=== PATIENT | female | born 1940 | race Caucasian/White ===

== ENCOUNTER 2017-09-07 03:22 | Observation (INO) | payer OTHER ==
[~2017-09-07] VITALS: Ht 160 cm; Wt 133.2 kg
[~2017-09-07 03:22] MED LIST: DIAZIDE; HYDACE5 PO; INDO50 PO; NIFE30ER PO; OMEPRAZOLE MAGN20 MG PO; Ramipril10 MG PO; SERT100; SERT50 PO; Spironolactone50 MG PO; [UNRECOGNIZED DRUG - REMARK]; [UNRECOGNIZED DRUG - REMARK]
[2017-09-07] MEDS ORDERED: NIFE30ER PO (03:36)
[2017-09-07] MEDS ORDERED: Ramipril10 MG PO (03:36)
[2017-09-07 04:17] LABS: BASOPHILS ABSOLUTE AUTO 0.06 K/mm3 (0.00-0.23); BASOPHILS PERCENT AUTO 0 % (0-2); EOSINOPHILS ABSOLUTE AUTO 0.17 K/mm3 (0.00-0.68); EOSINOPHILS PERCENT AUTO 1 % (0-6); Hematocrit 32.6 % (33.0-51.0); Hemoglobin 9.8 g/dL (11.5-16.0); IMMATURE GRAN ABSOLUTE AUTO 0.12 K/mm3 (0.00-0.10); IMMATURE GRAN PERCENT AUTO 1 % (0-1); LYMPHOCYTES ABSOLUTE AUTO 4.18 K/mm3 (0.84-5.20); LYMPHOCYTES PERCENT AUTO 24 % (21-46); MONOCYTES ABSOLUTE AUTO 1.27 K/mm3 (0.16-1.47); MONOCYTES PERCENT AUTO 7 % (4-13); Mean Corpuscular HGB 25.9 pg (26.0-34.0); Mean Corpuscular HGB Conc 30.1 g/dL (31.5-36.5); Mean Corpuscular Volume 86 fL (80-100); Mean Platelet Volume 10.4 fL (9.1-12.4); NEUTROPHILS ABSOLUTE AUTO 11.62 K/mm3 (1.96-9.15); NEUTROPHILS PERCENT AUTO 67 % (41-73); Platelet Count 366 K/mm3 (150-400); RDW Coefficient Variation 15.9 % (11.7-14.2); Red Blood Cell Count 3.78 M/mm3 (3.80-5.20); White Blood Cell Count 17.42 K/mm3 (4.00-11.30)
[2017-09-07 04:30] LABS: Albumin/Globulin Ratio 0.7 (0.8-1.8); Bilirubin, Total 0.2 mg/dL (0.1-1.0); Bun/Creatinine Ratio 22.3 (12.0-20.0); Calcium, Blood 8.6 mg/dL (8.5-10.1); Creatinine, Blood 1.93 mg/dL (0.40-1.00); Globulin, Blood 4.3 g/dL (2.2-4.0); Potassium, Blood 5.9 mmol/L (3.5-5.5); Total Protein, Blood 7.3 g/dL (6.4-8.2)
[2017-09-07 05:15] LABS: IMMATURE RETIC FRACTION 28.8 % (2.3-16.0); RETIC HGB EQUIVALENT 29.9 pg (28.20-36.60); RETICULOCYTE COUNT PERCENT 1.98 % (0.50-2.50)
[2017-09-07 05:29] LABS: Percent Saturation 5.1 % (15.0-50.0)
[2017-09-07 06:04] LABS: Source, Urine Clean Catch
[2017-09-07 06:14] LABS: Blood, Urine 1+ (Neg); Glucose Qualitative, Urine Neg (Neg); Ketones, Urine Neg (Neg); Leukocyte Esterase, Urine Neg (Neg); Nitrite, Urine Neg (Neg); Protein, Urine Neg (Neg); Urobilinogen, Urine NORM (Normal)
[2017-09-07 06:22] LABS: Appearance, Urine Clear (Clear); Bilirubin, Urine 1+ (Neg); Color, Urine Yellow (P-Yellow)
[2017-09-07 06:27] LABS: Bacteria Few /hpf; Red Blood Cells, Urine 0-2 /hpf (0-2); Squamous Epithelial Cells Many /hpf (Few); White Blood Cells, Urine 0-2 /hpf (0-5)
[2017-09-08 06:00] LABS: BASOPHILS ABSOLUTE AUTO 0.07 K/mm3 (0.00-0.23); BASOPHILS PERCENT AUTO 0 % (0-2); EOSINOPHILS ABSOLUTE AUTO 0.21 K/mm3 (0.00-0.68); EOSINOPHILS PERCENT AUTO 1 % (0-6); Hematocrit 31.3 % (33.0-51.0); Hemoglobin 9.6 g/dL (11.5-16.0); IMMATURE GRAN ABSOLUTE AUTO 0.25 K/mm3 (0.00-0.10); IMMATURE GRAN PERCENT AUTO 1 % (0-1); LYMPHOCYTES ABSOLUTE AUTO 2.55 K/mm3 (0.84-5.20); LYMPHOCYTES PERCENT AUTO 14 % (21-46); MONOCYTES ABSOLUTE AUTO 1.46 K/mm3 (0.16-1.47); MONOCYTES PERCENT AUTO 8 % (4-13); Mean Corpuscular HGB 25.7 pg (26.0-34.0); Mean Corpuscular HGB Conc 30.7 g/dL (31.5-36.5); Mean Corpuscular Volume 84 fL (80-100); Mean Platelet Volume 10.5 fL (9.1-12.4); NEUTROPHILS ABSOLUTE AUTO 13.87 K/mm3 (1.96-9.15); NEUTROPHILS PERCENT AUTO 75 % (41-73); Platelet Count 345 K/mm3 (150-400); RDW Coefficient Variation 15.9 % (11.7-14.2); RDW Standard Deviation 48.4 fL (35.1-46.3); Red Blood Cell Count 3.73 M/mm3 (3.80-5.20); White Blood Cell Count 18.41 K/mm3 (4.00-11.30)
[2017-09-08 06:30] LABS: Bun/Creatinine Ratio 23.2 (12.0-20.0); Calcium, Blood 8.7 mg/dL (8.5-10.1); Creatinine, Blood 1.38 mg/dL (0.40-1.00); Potassium, Blood 5.1 mmol/L (3.5-5.5)
[2017-09-09 05:16] LABS: BASOPHILS ABSOLUTE AUTO 0.07 K/mm3 (0.00-0.23); BASOPHILS PERCENT AUTO 1 % (0-2); EOSINOPHILS ABSOLUTE AUTO 0.41 K/mm3 (0.00-0.68); EOSINOPHILS PERCENT AUTO 3 % (0-6); Hematocrit 32.2 % (33.0-51.0); IMMATURE GRAN ABSOLUTE AUTO 0.19 K/mm3 (0.00-0.10); IMMATURE GRAN PERCENT AUTO 1 % (0-1); LYMPHOCYTES ABSOLUTE AUTO 2.45 K/mm3 (0.84-5.20); LYMPHOCYTES PERCENT AUTO 17 % (21-46); MONOCYTES ABSOLUTE AUTO 1.27 K/mm3 (0.16-1.47); MONOCYTES PERCENT AUTO 9 % (4-13); Mean Corpuscular HGB Conc 31.1 g/dL (31.5-36.5); Mean Corpuscular Volume 84 fL (80-100); Mean Platelet Volume 10.4 fL (9.1-12.4); NEUTROPHILS ABSOLUTE AUTO 10.14 K/mm3 (1.96-9.15); NEUTROPHILS PERCENT AUTO 70 % (41-73); NRBC ABSOLUTE 0.02 K/mm3 (0.00-0.02); NRBC Auto 0.1 /100 WBC (0.0-0.2); Platelet Count 357 K/mm3 (150-400); RDW Coefficient Variation 15.9 % (11.7-14.2); RDW Standard Deviation 47.8 fL (35.1-46.3); Red Blood Cell Count 3.84 M/mm3 (3.80-5.20); White Blood Cell Count 14.53 K/mm3 (4.00-11.30)
[2017-09-09 05:52] LABS: Bun/Creatinine Ratio 18.8 (12.0-20.0); Calcium, Blood 8.9 mg/dL (8.5-10.1); Creatinine, Blood 1.17 mg/dL (0.40-1.00)
== END 2017-09-09 15:31 | disposition home or self-care (01) ==
LOC: ER 03:22 → MEDS 03:23 → ER 06:18 → MEDS 06:18 → ENPENDDIS 09-09 14:00 → MEDS 09-09 15:31
PROVIDERS: Emergency Medicine; Hospitalist; Internal Medicine
DX: N17.9 Acute kidney failure, unspecified (principal); E86.0 Dehydration; I10 Essential (primary) hypertension; K21.9 Gastro-esophageal reflux disease without esophagitis; F32.9 Major depressive disorder, single episode, unspecified; E87.5 Hyperkalemia; N39.0 Urinary tract infection, site not specified; M19.90 Unspecified osteoarthritis, unspecified site; D64.9 Anemia, unspecified; Z79.899 Other long term (current) drug therapy
CPT/HCPCS: 36415; 80048; 80053; 81001; 82607; 82728; 82746; 83540; 83550; 85025; 85045; 87086; 87147; 93005; 93010; 99285; J0696; J1650; J2916; J7030

== ENCOUNTER 2018-11-11 07:36 | Day surgery (SDC) | payer OTHER | END 2018-11-11 12:30 | disposition home or self-care (01) | LOC: ATC 07:36 | DX: D50.0 Iron deficiency anemia secondary to blood loss (chronic) (principal); M19.90 Unspecified osteoarthritis, unspecified site; I12.9 Hypertensive chronic kidney disease with stage 1 through stage 4 chronic kidney disease, or unspecified chronic kidney disease; N18.9 Chronic kidney disease, unspecified; G47.33 Obstructive sleep apnea (adult) (pediatric) | CPT/HCPCS: 36430; 86850; 86900; 86901; 86923; J7050; P9016 ==

== ENCOUNTER 2019-04-11 09:36 | Inpatient (IN) | payer OTHER ==
[~2019-04-11] VITALS: Ht 162.6 cm; Wt 102.6 kg
[2019-04-11 10:18] LABS: BASOPHILS ABSOLUTE AUTO 0.04 K/mm3 (0.00-0.23); BASOPHILS PERCENT AUTO 0 % (0-2); EOSINOPHILS PERCENT AUTO 1 % (0-6); Hematocrit 37.3 % (33.0-51.0); Hemoglobin 11.6 g/dL (11.5-16.0); IMMATURE GRAN PERCENT AUTO 1 % (0-1); LYMPHOCYTES ABSOLUTE AUTO 2.48 K/mm3 (0.84-5.20); LYMPHOCYTES PERCENT AUTO 17 % (21-46); MONOCYTES ABSOLUTE AUTO 0.86 K/mm3 (0.16-1.47); MONOCYTES PERCENT AUTO 6 % (4-13); Mean Corpuscular HGB 28.8 pg (26.0-34.0); Mean Corpuscular HGB Conc 31.1 g/dL (31.5-36.5); Mean Corpuscular Volume 93 fL (80-100); Mean Platelet Volume 10.7 fL (9.1-12.4); NEUTROPHILS ABSOLUTE AUTO 11.23 K/mm3 (1.96-9.15); NEUTROPHILS PERCENT AUTO 76 % (41-73); Platelet Count 263 K/mm3 (150-400); RDW Standard Deviation 54.5 fL (35.1-46.3); Red Blood Cell Count 4.03 M/mm3 (3.80-5.20); White Blood Cell Count 14.81 K/mm3 (4.00-11.30)
[2019-04-11 10:39] LABS: Albumin, Blood 3.2 g/dL (3.4-5.0); Bilirubin, Total 0.4 mg/dL (0.1-1.0); Bun/Creatinine Ratio 29.1 (12.0-20.0); Calcium, Blood 8.8 mg/dL (8.5-10.1); Creatinine, Blood 1.17 mg/dL (0.40-1.00); Globulin, Blood 3.3 g/dL (2.2-4.0); Potassium, Blood 4.5 mmol/L (3.5-5.5); Total Protein, Blood 6.5 g/dL (6.4-8.2)
[2019-04-11 12:18] LABS: International Normalized Ratio 1.08; Prothrombin Time Results 11.4 Sec (9.7-11.5)
[2019-04-11] MEDS ORDERED: Mobic7.5 MG PO (12:19)
[2019-04-11] MEDS ORDERED: SERT25 PO (12:19)
--- NOTE | 2019-04-11 13:30 | NUR ---
PT ADMITTED PT ADMITTED AT 1320. PT IN STALE CONDITION. SBP ELEVATED IN THE 170S. OTHER VITALS STABLE. PT ORIENTED TO ROOM. CALL LIGHT IN REACH.
[2019-04-11 14:14] LABS: Hematocrit 36.5 % (33.0-51.0); Hemoglobin 11.7 g/dL (11.5-16.0)
--- NOTE | 2019-04-11 18:22 | NUR ---
SHIFT SUMMARY PT SEEN BY GI DR. CHAIDEZ. PT TO HAVE COLONOSCOPY TOMORROW SOMETIME. PT STARTED ON MIRALAX PREP THIS EVENING. PT TOLERATING WELL SO FAR. NO BM YET. WILL CONTINUE TO MONITOR UNTIL TURNOVER IS COMPLETE. VSS AT THIS TIME. FAMILY UPDATED ON PT PLAN OF CARE.
[2019-04-11 18:28] LABS: Hematocrit 37.1 % (33.0-51.0); Hemoglobin 11.4 g/dL (11.5-16.0)
--- NOTE | 2019-04-11 20:31 | NUR ---
PT PALE CLAMMY, DIAPHORETIC & REPORTS FEELING DIZZY/LIGHTHEADED AFTER HAVING 1000ML DARK RED/BROWN W/COFFEE GROUND & LARGE DARK BLACK LOOKING CLOTS IN STOOL. VS TAKIN & RR INCREASED TO 28 & HR TACHY @105. COLONOCOPY PLANNED FOR AM & H&H GOING TO BE TAKEN @2200. NOTIFIED CHARGE NURSE MAXIMUS Leyva RN, WILL CONTINUE TO MONITOR.
[2019-04-11 22:21] LABS: Hematocrit 34.4 % (33.0-51.0)
[2019-04-12 05:08] LABS: Hematocrit 30.5 % (33.0-51.0); Hemoglobin 9.7 g/dL (11.5-16.0); Mean Corpuscular HGB 29.2 pg (26.0-34.0); Mean Corpuscular HGB Conc 31.8 g/dL (31.5-36.5); Mean Corpuscular Volume 92 fL (80-100); Platelet Count 234 K/mm3 (150-400); RDW Standard Deviation 54.6 fL (35.1-46.3); Red Blood Cell Count 3.32 M/mm3 (3.80-5.20); White Blood Cell Count 14.57 K/mm3 (4.00-11.30)
[2019-04-12 05:25] LABS: Bun/Creatinine Ratio 22.9 (12.0-20.0); Calcium, Blood 8.5 mg/dL (8.5-10.1); Creatinine, Blood 1.09 mg/dL (0.40-1.00); Potassium, Blood 3.9 mmol/L (3.5-5.5)
--- NOTE | 2019-04-12 06:06 | NUR ---
SHIFT SUMMARY SLEPT WELL T/O NIGHT. AOX4. HAD 2 EPISODES LIQUID BROWN/RED (BURGANDY) STOOL W/COFFEE GROUND LOOKING FLAKES SCATTERED, 1300ML TOTAL BM OUTPUT. AFTER BM PT FELT DIZZY/LIGHTHEADED & WAS CLAMMY/DIAPHORETIC, READ PREVIOUS NOTE. OTHERWISE VS HAVE BEEN STABLE. DENIES N/V, ABD TENDERNESS OR DYSPNEA. REPORTS MILD LOWER BACK PAIN & WAS MEDICATED W/TYLENOL WHICH SHE REPORTED RELIEF FROM. PT WAS TOLERATING HER CLEAR LIQUID DIET & HAS BEEN NPO SINCE 0600 FOR PLANNED COLONOSCOPY THIS AM. CALL LIGHT IN REACH.
--- NOTE | 2019-04-12 11:27 | NUR ---
AT 1100 I RECEIVED REPORT FROM STEVE FIELD RN IN ROOM 336. PT ABLE TO AMBULATED TO BED WITH WALKER, SOME SOB NOTED, 02 SAT WNL.
--- NOTE | 2019-04-12 11:39 | NUR ---
GAVE TYLENOL WITH A SIP OF WATER FOR BACK PAIN. OKAYED WITH SEDATION ALEXA Plascencia
--- NOTE | 2019-04-12 12:36 | NUR ---
04/12/19 1235 [place] PATIENT DETERMINED TO BE ASA APPROPRIATE FOR PROPOFOL SEDATION PRIOR TO START OF PROCEDURE BY 3-LEAD EKG REVIEWED WITH PHYSICIAN PRIOR TO START OF PROCEDURE.Patient to ENDO 1History, Chart, Medications and Allergies reviewed before start of procedure.Glasses RemovedMONITOR INTACT WITH CONTINUOUS PULSE OXIMETRY AND INTERMITTENT BP.O2 VIA N/C INTACT THROUGHOUT SEDATION/PROCEDURE.
--- NOTE | 2019-04-12 13:56 | NUR ---
REPORT FROM DAY SURG REPORT REC FROM [facility] @ 8110, PT XFER'D TO ROOM @ 1346, SITTING UP IN CHAIR SIPPING CLEARS, A&O, DENIES PAIN, FAMILY @ BEDSIDE, NO NEEDS AT THIS TIME
--- NOTE | 2019-04-12 17:05 | NUR ---
SHIFT SUMMARY PT HAS HAD NO ACUTE CHANGES THIS SHIFT, LOWER SCOPE COMPLETE TODAY, PT TOLERAING CLEARS WELL, DENIES PAIN, NO COMPLAINTS OF ANY KIND, BEDRESTING WATCHING TV, WILL CONT TO MONITOR UNTIL REPORT GIVEN TO NOC RN.
--- NOTE | 2019-04-13 04:56 | NUR ---
At HS assisted to bathroom, then back to bed. Later voiced desires to sleep in lounge chair at bedside. Voiced uncomfortable to sleep in bed. A/O x 4. Requested and received Tylenol for discomfort - see MAR for details. Call light in reach.
[2019-04-13 04:58] LABS: Hemoglobin 8.2 g/dL (11.5-16.0); Mean Corpuscular HGB 28.8 pg (26.0-34.0); Mean Corpuscular HGB Conc 31.5 g/dL (31.5-36.5); Mean Corpuscular Volume 91 fL (80-100); Mean Platelet Volume 10.2 fL (9.1-12.4); Platelet Count 212 K/mm3 (150-400); RDW Coefficient Variation 16.1 % (11.7-14.2); RDW Standard Deviation 53.3 fL (35.1-46.3); Red Blood Cell Count 2.85 M/mm3 (3.80-5.20); White Blood Cell Count 11.42 K/mm3 (4.00-11.30)
[2019-04-13 05:09] LABS: Bun/Creatinine Ratio 19.4 (12.0-20.0); Calcium, Blood 8.4 mg/dL (8.5-10.1); Creatinine, Blood 1.03 mg/dL (0.40-1.00); Potassium, Blood 4.3 mmol/L (3.5-5.5)
--- NOTE | 2019-04-13 07:50 | NUR ---
SPOKE WITH DR. WEBER ABOUT BLOODY STOOL THIS AM. H/H DROPPED FROM 9.7 YESTERDAY TO 8.2 THIS AM. ORDERS RECEIVED TO START LR @ 150ML/HR.
[2019-04-13 09:10] LABS: Hematocrit 28.4 % (33.0-51.0); Hemoglobin 8.9 g/dL (11.5-16.0)
--- NOTE | 2019-04-13 17:09 | NUR ---
Spiritual Care inital note: Mrs. Guzman is a delightful woman. she spoke to me at length about her children and grandkids. She is very proud of them. She finds her illness to be a hinderance to her life right now. She lives alone with family next-door. She admits to feeling a "bit" nervous about lack of clear answers yet. She responded well to emotional affirmation, gentle mental health counselor, and theraputic listening. Prayer provided. [employer] will remain available.
--- NOTE | 2019-04-13 19:13 | NUR ---
PATIENT A/OX4, UP WITH FWW AND 1 ASSIST TO RESTROOM. VSS, ON RA. HAD 2 BLOODY BM'S THIS AM AND NOTHING SINCE. PATIENT DENIES ANY ABDOMINAL PAIN. ZOFRAN GIVEN X1 TO TREAT NAUSEA AFTER MORNING MEDS. TOLERATING CLEAR DIET. SKIN INTACT. 20G IV TO R AC AND 18G IV TO L FA WNL. LR @ 150ML/HR INFUSING. DR. CHAIDEZ CONSULTING. H/H STABLE TODAY. CALM ANC COOPERATIVE WITH CARE, CALLS APPROPRIATELY FOR ASSISTANCE.
--- NOTE | 2019-04-14 04:37 | NUR ---
SHIFT SUMMARY PT UP IN CHAIR MUCH OF THE EVENING. SLEEPING OFF AND ON. PT HAD A SMALL SMEAR OF BLOODY STOOL BUT OTHERWISE NO BOWEL MOVEMENTS THIS EVENING. PT HAS CHRONIC BACK PAIN, MEDICATED X 1 W/ 650 MG TYLENOL. CONTINUED TO TOLERATE CLEAR LIQUID DIET WITH NO NAUSEA. TELEMETRY READING SR 91. PT PUFFY AND EDEMATOUS THROUGHOUT. PT REPORTS THIS HAPPENS TO HER WHEN SHE HAS TOO MUCH SALT. WILL CONTINUE TO MONITOR. OTHERWISE NO ACUTE CHANGES.
[2019-04-14 05:02] LABS: Hematocrit 25.2 % (33.0-51.0); Hemoglobin 7.9 g/dL (11.5-16.0); Mean Corpuscular HGB 29.5 pg (26.0-34.0); Mean Corpuscular HGB Conc 31.3 g/dL (31.5-36.5); Mean Platelet Volume 9.9 fL (9.1-12.4); Platelet Count 263 K/mm3 (150-400); RDW Coefficient Variation 16.4 % (11.7-14.2); RDW Standard Deviation 56.7 fL (35.1-46.3); Red Blood Cell Count 2.68 M/mm3 (3.80-5.20); White Blood Cell Count 13.07 K/mm3 (4.00-11.30)
[2019-04-14 05:04] LABS: Mean Corpuscular Volume 94 fL (80-100)
[2019-04-14 09:27] LABS: Hematocrit 24.7 % (33.0-51.0); Hemoglobin 7.7 g/dL (11.5-16.0)
[2019-04-14 13:09] LABS: Hematocrit 24.1 % (33.0-51.0); Hemoglobin 7.6 g/dL (11.5-16.0)
--- NOTE | 2019-04-14 14:50 | NUR ---
Patient states colon prep results red, no stool noted. History, Chart, Medications and Allergies reviewed before start of procedure. Lungs clear T/O to Auscultation. Patient confirms NPO status and agrees with scheduled surgery. Pre-Op teaching done. Pt verbalizes understanding.
--- NOTE | 2019-04-14 15:38 | NUR ---
04/14/19 1537 Genny Fuentes History, Chart, Medications and Allergies reviewed before start of procedure.PATIENT DETERMINED TO BE ASA APPROPRIATE FOR PROPOFOL SEDATION PRIOR TO START OF PROCEDURE BY .MONITOR INTACT WITH CONTINUOUS PULSE OXIMETRY AND INTERMITTENT BP.3-LEAD EKG REVIEWED WITH PHYSICIAN PRIOR TO START OF PROCEDURE.O2 VIA N/C INTACT THROUGHOUT SEDATION/PROCEDURE.
--- NOTE | 2019-04-14 16:14 | NUR ---
SHIFT SUMMARY PT CURRENTLY UNDERGOING A COLONOSCOPY. H&H HAVE BEEN DOWNTRENDING. HGB IS CURRENTLY 7.6. LIQUID BLOODY STOOLS NOTED. DR CHAIDEZ IS PERFORMING COLONOSCOPY. PREVIOUS TO PROCEDURE PT WAS NPO, EXCEPT FOR BOWEL PREP. SHE IS A&O X4. NO REFERAL CALLED TO [facility] I WAS INFORMED HE WILL NOT BE BACK UNTIL WEDNESDAY. TELEMETRY IS MONITORING NSR @ 89 BPM. LR RUNNING AT 150 ML/HR ORDERED. PT STATES SHE HAS CHRONIC BACK PAIN.
[2019-04-14 17:13] LABS: Hematocrit 22.9 % (33.0-51.0); Hemoglobin 7.3 g/dL (11.5-16.0)
--- NOTE | 2019-04-14 17:40 | NUR ---
DR CHAIDEZ ROUNDED STATED PT WOULD RECEIVE SERIAL H&H LABS. HE WOULD PERFORM AN RBC-TAG SCAN TOMORROW, A TEST THAT CAN DETECT SLOW BLEEDS. HE STATED PT COULD BE CLEAR LIQUID DIET FROM HIS STANDPOINT. HE INFORMED THE PT SHE WOULD GET BLOOD WHEN HER HGB DROPS BELOW 7. HE STATED HE FOUND NO OVERT REASON FOR BLEED DURING THE COLONOSCOPY.
[2019-04-14] MEDS ORDERED: FERSU300 PO (19:48)
[2019-04-14] MEDS ORDERED: ALBU2.5V5 INH (19:50)
[2019-04-14] MEDS ORDERED: ALBU3IS INH (19:52)
[2019-04-14] MEDS ORDERED: CENTRUM SILVER1 EAC3 PO (19:53)
--- NOTE | 2019-04-14 21:41 | NUR ---
1999 PT RESTING COMFORTABLY IN BED WITH FAMILY AT BEDSIDE, PATIENTS DAUGHTER BROUGHTIN PILL BOTTLES FROM HOME WITH THIS NURSE UPDATING MEDICATION LIST AND THEN DAUGHTER TOOK ALL MEDICATIONS BACK HOME. PT HAPPY AND COOPERATIVE.
[2019-04-15 01:30] LABS: Hematocrit 19.6 % (33.0-51.0); Hemoglobin 6.2 g/dL (11.5-16.0)
--- NOTE | 2019-04-15 05:42 | NUR ---
SHIFT SUMMARY: 78 Y/O OBESE FEMALE RESTED COMFORTABLY ALL SHIFT, DENIES PAIN, NAUSEA, NO S/S BLEEDING NOTED, ABLE TRANSFER FROM BED TO BSC X 1 STANDBY ASSIST AND BACK, ALERT AND ORIENTED X 4, HG 6.2 THIS AM WITH ONE UNIT PRBC STARTED AT 0524, BED LOW POSITION WITH CALL LIGHT AT SIDE.
[2019-04-15 09:17] LABS: Hematocrit 26.6 % (33.0-51.0); Hemoglobin 8.5 g/dL (11.5-16.0); Mean Corpuscular HGB 29.5 pg (26.0-34.0); Mean Corpuscular Volume 92 fL (80-100); Mean Platelet Volume 10.6 fL (9.1-12.4); Platelet Count 260 K/mm3 (150-400); RDW Coefficient Variation 16.1 % (11.7-14.2); Red Blood Cell Count 2.88 M/mm3 (3.80-5.20); White Blood Cell Count 11.99 K/mm3 (4.00-11.30)
[2019-04-15 09:34] LABS: Anion Gap 7 mmol/L (6-16); Blood Urea Nitrogen 12 mg/dL (8-24); Bun/Creatinine Ratio 12.9 (12.0-20.0); CO2, Blood 27 mmol/L (21-32); Calcium, Blood 8.5 mg/dL (8.5-10.1); Chloride, Blood 110 mmol/L (98-108); Creatinine, Blood 0.93 mg/dL (0.40-1.00); Glomerular Filtration Rate >60 (60-); Glucose, Blood 113 mg/dL (70-99); Potassium, Blood 3.9 mmol/L (3.5-5.5); Sodium, Blood 144 mmol/L (136-145)
[2019-04-15 17:01] LABS: Hematocrit 26.8 % (33.0-51.0); Hemoglobin 8.6 g/dL (11.5-16.0)
--- NOTE | 2019-04-15 17:26 | NUR ---
SHIFT SUMMARY AWAITING RBC-TAG RESULTS FOR THIS PT. IF BLEED IS FOUND, PLAN MAY BE TO TRANSFER HER TO A FACILITY WITH INTERVENTIONAL RADIOLOGY AVAILABLE. IF NO BLEED, PLAN IS TO MONITOR H&H. PT IS COOPERATIVE WITH CARE, DENIES PAIN. SHE IS ON A CLEAR LIQUID DIET AND HAS BEEN TOLERATING THIS WELL. NO BM THROUGHOUT SHIFT.
[2019-04-16 02:22] LABS: Hematocrit 22.6 % (33.0-51.0); Hemoglobin 7.4 g/dL (11.5-16.0); Mean Corpuscular HGB 30.8 pg (26.0-34.0); Mean Corpuscular HGB Conc 32.7 g/dL (31.5-36.5); Mean Corpuscular Volume 94 fL (80-100); Mean Platelet Volume 9.5 fL (9.1-12.4); Platelet Count 218 K/mm3 (150-400); RDW Coefficient Variation 16.3 % (11.7-14.2); RDW Standard Deviation 54.8 fL (35.1-46.3); White Blood Cell Count 11.87 K/mm3 (4.00-11.30)
--- NOTE | 2019-04-16 07:59 | NUR ---
SUMMARY NO EVIDENCE OF FRESH BLEED TONIGHT.H/H DECLINE. SEE LABS.
[2019-04-16 09:20] LABS: Hematocrit 26.7 % (33.0-51.0); Hemoglobin 8.5 g/dL (11.5-16.0)
--- NOTE | 2019-04-16 13:11 | NUR ---
PT PASSING GUAIAC BM 2 GUAIAC BM'S NOTED SO FAR THIS SHIFT
[2019-04-16 14:02] LABS: Hematocrit 26.9 % (33.0-51.0); Hemoglobin 8.5 g/dL (11.5-16.0)
--- NOTE | 2019-04-16 14:13 | NUR ---
H&H LABS INCREDIBLY DESPITE TWO GUAIAC STOOLS, HGB IS NOW 8.5, HCT IS 26.9 (IN COMPARISON TO THIS MORNING'S LABS: HGB 8.5, HCT 26.7).
--- NOTE | 2019-04-16 18:10 | NUR ---
SHIFT SUMMARY 2 LOOSE GUAIAC BM'S THIS SHIFT. H&H LABS REMAIN STABLE. CHAIDEZ AND HOSPITALIST INFORMED. BOTH ROUNDED ON PT. PT TOLERATING ADVANCING DIET WELL. NO N/V. PT AMBULATES TO BATHROOM W/FWW. DENIES PAIN
--- NOTE | 2019-04-16 20:20 | NUR ---
1945 PT RESTING COMFORTABLY BEDSIDE CHAIR WITH FRIEND AT SIDE, ALERT AND ORIENTED X 4.
--- NOTE | 2019-04-17 04:06 | NUR ---
SHIFT SUMMARY: 78 Y/O OBESE FEMALE RESTED COMFORTABLY ALL SHIFT IN LOUNGE CHAIR PER HER REQUEST SHE NORMALLY SLEEPS IN RECLINER AT HOME, DENIES PAIN OR NAUSEA, EAGER TO RETURN HOME, PT HAS FREQUENT BACK DISCOMFORT AND FELT RELIEF WITH ICY HOT PACK STRIP APPLIED TO LOWER BACK MIDDLE OF SHIFT, TELEMETRY REFLECTS NSR WITH PVC AND HEART RATE 90, BED ALARM AT SIDE.
[2019-04-17 05:27] LABS: Hematocrit 24.2 % (33.0-51.0); Hemoglobin 7.5 g/dL (11.5-16.0); Mean Corpuscular HGB 29.3 pg (26.0-34.0); Mean Corpuscular Volume 95 fL (80-100); Mean Platelet Volume 10.3 fL (9.1-12.4); Platelet Count 260 K/mm3 (150-400); RDW Coefficient Variation 16.7 % (11.7-14.2); RDW Standard Deviation 55.5 fL (35.1-46.3); Red Blood Cell Count 2.56 M/mm3 (3.80-5.20); White Blood Cell Count 11.42 K/mm3 (4.00-11.30)
[2019-04-17 08:59] LABS: Hematocrit 26.2 % (33.0-51.0); Hemoglobin 8.4 g/dL (11.5-16.0)
--- NOTE | 2019-04-17 16:05 | NUR ---
SUMMARY PT IS A/O X4, SBA W FWW TO BR/CHAIR. SHE HAS BEEN UP IN CHAIR MOST OF DAY. BM CONTINUE + FOR BLOOD, TURN RED IN WATER, LOOSE/SOFT BROWN. H&H SOMEWHAT IMPROVED TODAY, 8.4/.2, GI/DR CHAIDEZ HAS BEEN CONSULTED, EGD & COLONOSCOPY ON PREVIOUS DAYS. TELE SINUS TACH 100-110, VSS. PLEASANT/COOPERATIVE AFFECT.
[2019-04-18 05:03] LABS: Hematocrit 23.1 % (33.0-51.0); Hemoglobin 7.2 g/dL (11.5-16.0); Mean Corpuscular HGB 29.3 pg (26.0-34.0); Mean Corpuscular HGB Conc 31.2 g/dL (31.5-36.5); Mean Corpuscular Volume 94 fL (80-100); Mean Platelet Volume 10.3 fL (9.1-12.4); Platelet Count 274 K/mm3 (150-400); RDW Coefficient Variation 16.7 % (11.7-14.2); RDW Standard Deviation 55.9 fL (35.1-46.3); Red Blood Cell Count 2.46 M/mm3 (3.80-5.20)
--- NOTE | 2019-04-18 07:34 | NUR ---
04/18/19 0600 VITALS STABLE. NO STOOLS SEEN THIS SHIFT. HGB AT 7.2 THIS AM.. MD WANTS TO BE NOTIFIED IF LESS THAN 7. UP WITH HELP SEVERAL TIMES FOR VOIDING ONLY. UNEVENTFUL NIGHT.
[2019-04-18 08:13] LABS: Hematocrit 26.6 % (33.0-51.0); Hemoglobin 8.2 g/dL (11.5-16.0)
[2019-04-18] MEDS ORDERED: MIRALAX17 GM PO (12:11)
[2019-04-18] MEDS ORDERED: ICY HOT TOP (12:12)
--- NOTE | 2019-04-18 12:46 | NUR ---
Discharge Summary A/Ox3. Patient discharge to home. Discharge paperwork reviewed with patient, she had no questions about discharge at this time. Pt will be escorted with w/c by escort services via son-in-law in personal vehicle. Meds faxed to preferred pharmacy, f/u appointments scheduled. Personal belongings bagged by [employer] and will be send home with patient.
== END 2019-04-18 12:50 | disposition home or self-care (01) | DRG 378 ==
LOC: ER 09:36 → MEDS 12:55 → ENPENDDIS 04-18 11:14 → MEDS 04-18 12:50
PROVIDERS: Emergency Medicine; Internal Medicine; Internal Medicine Gastroenterology; Nurse Practitioner Acute Care; ADMIT Hospitalist
PROC: 0DJD8ZZ Inspection of Lower Intestinal Tract, Via Natural or Artificial Opening Endoscopic (ICD-10-PCS; principal; 2019-04-12 12:00)
PROC: 30233N1 Transfusion of Nonautologous Red Blood Cells into Peripheral Vein, Percutaneous Approach (ICD-10-PCS; 2019-04-14)
PROC: 0DBM8ZZ Excision of Descending Colon, Via Natural or Artificial Opening Endoscopic (ICD-10-PCS; 2019-04-14 15:00)
DX: K57.31 Diverticulosis of large intestine without perforation or abscess with bleeding (principal); D62 Acute posthemorrhagic anemia; N18.3 Chronic kidney disease, stage 3 (moderate); I12.9 Hypertensive chronic kidney disease with stage 1 through stage 4 chronic kidney disease, or unspecified chronic kidney disease; M54.9 Dorsalgia, unspecified; F41.1 Generalized anxiety disorder; F32.9 Major depressive disorder, single episode, unspecified
CPT/HCPCS: 36415; 36430; 74174; 78278; 80048; 80053; 82272; 85014; 85018; 85025; 85027; 85610; 86850; 86900; 86901; 86923; 88305; 96360; 99285-25; A9270; A9560; C9113; J2405; J2704; J7030; J7120; P9016; Q9967

== ENCOUNTER 2023-02-25 07:46 | Day surgery (SDC) | payer OTHER ==
[~2023-02-25] VITALS: Ht 157.5 cm; Wt 107.3 kg
[~2023-02-25 07:46] MED LIST changes: +ALBU2.5V5 INH; +ALBU3IS INH; +CENTRUM SILVER1 EAC3 PO; +FERSU300 PO; +ICY HOT TOP; +MIRALAX17 GM PO; +Mobic7.5 MG PO; +SERT25 PO
[2023-02-25] MEDS ORDERED: AMLODIPINE BES2.5 MG PO (08:23)
--- NOTE | 2023-02-25 08:26 | NUR ---
02/25/23 0826 [place] AT 0824 PLEDGET 0812
[2023-02-25 09:27] VITALS: BP 162/96
== END 2023-02-25 09:38 | disposition home or self-care (01) ==
LOC: ORSCSDS 07:46
PROVIDERS: Ophthalmology
PROC: 08RK3JZ Replacement of Left Lens with Synthetic Substitute, Percutaneous Approach (ICD-10-PCS; principal; 2023-02-25 09:00)
DX: H25.13 Age-related nuclear cataract, bilateral (principal); I12.9 Hypertensive chronic kidney disease with stage 1 through stage 4 chronic kidney disease, or unspecified chronic kidney disease; N18.30 Chronic kidney disease, stage 3 unspecified; Z87.891 Personal history of nicotine dependence; K21.9 Gastro-esophageal reflux disease without esophagitis; G47.33 Obstructive sleep apnea (adult) (pediatric); Z79.899 Other long term (current) drug therapy
CPT/HCPCS: J2001; J2250; J3010; J3301; J7040; V2632

== ENCOUNTER 2023-03-04 07:41 | Day surgery (SDC) | payer OTHER ==
[~2023-03-04] VITALS: Ht 157.5 cm; Wt 236.4 kg
[~2023-03-04 07:41] MED LIST changes: +AMLODIPINE BES2.5 MG PO
--- NOTE | 2023-03-04 08:21 | NUR ---
03/04/23 0821 Thi Hankins TETRACAINE TO RIGHT EYE AT 0815 PLEDGET TO RIGHT EYE AT 0816 BY [email or web address]
[2023-03-04 09:20] VITALS: BP 187/93
--- NOTE | 2023-03-04 09:38 | NUR ---
03/04/23 0938 Freddie Chaparro IV REMOVED INTACT. SITE WNL.
== END 2023-03-04 09:34 | disposition home or self-care (01) ==
LOC: ORSCSDS 07:41
PROVIDERS: Ophthalmology
PROC: 08RJ3JZ Replacement of Right Lens with Synthetic Substitute, Percutaneous Approach (ICD-10-PCS; principal; 2023-03-04 09:00)
DX: H25.11 Age-related nuclear cataract, right eye (principal); Z96.1 Presence of intraocular lens; I12.9 Hypertensive chronic kidney disease with stage 1 through stage 4 chronic kidney disease, or unspecified chronic kidney disease; N18.30 Chronic kidney disease, stage 3 unspecified; E03.9 Hypothyroidism, unspecified; Z87.891 Personal history of nicotine dependence; Z79.899 Other long term (current) drug therapy
CPT/HCPCS: J2001; J2250; J3301; J7040; V2632